=== PATIENT | female | born 1990 | race Caucasian/White ===

== ENCOUNTER 2016-11-18 09:28 | Emergency (ER) | payer OTHER, MEDICAID ==
[~2016-11-18] VITALS: Ht 152.4 cm; Wt 56.0 kg
[2016-11-18 09:36] VITALS: BP 99/68; PULSE 90; RESP 16; TEMP 97.6; O2SAT 98
[2016-11-18 10:40] LABS: GLUCOSE,URINE NEG (NEG); KETONE, URINE NEG (NEG)
[2016-11-18 10:41] LABS: BLOOD, URINE MOD (NEG); NITRITE,URINE POS (NEG)
[2016-11-18 10:48] LABS: METHOD OF COLLECTION VOIDED; URINE COLOR AMBER (YELLW/STRAW)
[2016-11-18 11:00] VITALS: O2SAT 98
[2016-11-18] MEDS ORDERED: SODIUM CHLORIDE 0.9% FLUSH 5 ML FLUSH IVF PRN (11:00)
[2016-11-18 11:13] LABS: BACTERIA, URINE MOD /hpf; COMMENT (UR) CULTURE INDICATED; CULTURE IF INDICATED CULTURE INDICATED; RBC, URINE 0-3 /hpf (0-3); SQUAMOUS EPITHELIAL CELL URINE 0-5 /hpf (0-5)
[2016-11-18 11:14] LABS: AUTOMATED NEUTROPHIL # 5.6 TH/MM3 (1.8-7.7); BASOPHIL # 0.1 TH/MM3 (0-0.2); BASOPHIL % 1.7 % (0.0-2.0); EOSINOPHIL # 0.1 TH/MM3 (0-0.4); EOSINOPHIL % 1.2 % (0.0-4.0); HEMATOCRIT 37.8 % (35.0-46.0); HEMO FLAGS DIFF FINAL; LYMPHOCYTE # 1.9 TH/MM3 (1.0-4.8); MEAN CORPUSCULAR HGB CONC 34.1 % (32.0-36.0); MONO % 7.8 % (0.0-8.0); NEUT % 66.3 % (16.0-70.0); PLATELET COUNT 229 TH/MM3 (150-450); RED BLOOD COUNT 4.45 MIL/MM3 (4.00-5.30); RED CELL DISTRIBUTION WIDTH 12.3 % (11.6-17.2); WHITE BLOOD COUNT 8.3 TH/MM3 (4.0-11.0)
[2016-11-18 11:18] LABS: CHLORIDE 103 MEQ/L (98-107); POTASSIUM 3.9 MEQ/L (3.5-5.1); SODIUM (NA) 139 MEQ/L (136-145)
[2016-11-18 11:26] LABS: ANION GAP 8 MEQ/L (5-15); BLOOD UREA NITROGEN 8 MG/DL (7-18)
[2016-11-18 11:29] LABS: ALT (GPT) 22 U/L (10-53); AST (GOT) 20 U/L (15-37); GLOMERULAR FILTRATION RATE 84 ML/MIN (>89)
[2016-11-18 11:30] LABS: TOTAL BILIRUBIN ADULT 0.8 MG/DL (0.2-1.0)
[2016-11-18 11:31] LABS: ALKALINE PHOSPHATASE 80 U/L (45-117)
[2016-11-18] MEDS ORDERED: CIPR500T2 PO (11:55)
--- NOTE | 2016-11-18 11:56 | PD ---
HPI Chief Complaint: Abdominal Pain Time Seen by Provider: 10:29 Travel History International Travel<30 days: No Contact w/Intl Traveler<30days: No Traveled to known affect area: No History of Present Illness HPI Patient 26-year-old otherwise healthy female presents emergency department today for evaluation of pressure feeling like she needs to urinate and some right flank pain. Patient states that her mother has a history of kidney stones and they're wondering if she has any kidney stones. Patient denies any fever abdominal pain nausea vomiting or diarrhea. On arrival patient states she 's feeling actually pretty well the symptoms have been intermittent. Does note some dysuria which is mild in nature. No vaginal bleeding or vaginal discharge. Has not had these symptoms before. PFSH Past Medical History Medical History: Denies Significant Hx Tetanus Vaccination: > 5 Years Influenza Vaccination: No ?: Not LMP: 11/04/16 Past Surgical History Surgical History: No Previous Surgery Social History Alcohol Use: No Tobacco Use: No Substance Use: No Allergies-Medications (Allergen,Severity, Reaction): Coded Allergies: No Known Allergies (Unverified , 11/18/16) Reported Meds & Prescriptions Reported Meds & Active Scripts Active Ciprofloxacin (Ciprofloxacin HCl) 500 Mg Tab 500 Mg PO BID 7 Days Review of Systems Except as stated in HPI: all other systems reviewed are Neg Physical Exam Narrative GENERAL: Well-developed well-nourished no apparent distress. Quite pleasant. SKIN: Warm and dry. HEAD: Atraumatic. Normocephalic. EYES: Pupils equal and round. No scleral icterus. No injection or drainage. ENT: No nasal bleeding or discharge. Mucous membranes pink and moist. NECK: Trachea midline. No JVD. CARDIOVASCULAR: Regular rate and rhythm. No murmur appreciated. RESPIRATORY: No accessory muscle use. Clear to auscultation. Breath sounds equal bilaterally. GASTROINTESTINAL: Abdomen soft, non-tender, nondistended. Hepatic and splenic margins not palpable. Trivial right-sided CVA tenderness. No left-sided CVA tenderness. MUSCULOSKELETAL: No obvious deformities. No clubbing. No cyanosis. No edema. NEUROLOGICAL: Awake and alert. No obvious cranial nerve deficits. Motor grossly within normal limits. Normal speech. PSYCHIATRIC: Appropriate mood and affect; insight and judgment normal. Data Data Last Documented VS Vital Signs Date Time Temp Pulse Resp B/P Pulse Ox O2 Delivery O2 Flow Rate FiO2 11/18/16 12:10 78 14 102/63 98 Room Air 11/18/16 09:36 97.6 Orders Urinalysis - C+S If Indicated (11/18/16 09:39) Ed Urine Pregnancytest Poc (11/18/16 09:39) Complete Blood Count With Diff (11/18/16 10:52) Comprehensive Metabolic Panel (11/18/16 10:52) Iv Access Insert/Monitor (11/18/16 10:52) Ecg Monitoring (11/18/16 10:52) Oximetry (11/18/16 10:52) Sodium Chloride 0.9% Flush (Ns Flush) (11/18/16 11:00) Ed Poc Ultrasound (11/18/16 10:52) Urine Culture (11/18/16 10:30) Labs Laboratory Tests Test 11/18/16 11/18/16 10:30 11:00 Urine Collection Type VOIDED Urine Color TYRA Urine Turbidity SLIGHT Urine pH 6.0 Urine Specific [place] 1.004 Urine Protein TRACE mg/dL Urine Glucose (UA) NEG mg/dL Urine Ketones NEG mg/dL Urine Occult Blood MOD Urine Nitrite POS Urine Bilirubin NEG Urine Leukocyte Esterase MOD Urine RBC 0-3 /hpf Urine WBC 3-5 /hpf Urine WBC Clumps MOD Urine Squamous Epithelial 0-5 /hpf Cells Urine Bacteria MOD /hpf Microscopic Urinalysis Comment CULTURE INDICATED White Blood Count 8.3 TH/MM3 Red Blood Count 4.45 MIL/MM3 Hemoglobin 12.9 GM/DL Hematocrit 37.8 % Mean Corpuscular Volume 85.0 FL Mean Corpuscular Hemoglobin 29.0 PG Mean Corpuscular Hemoglobin 34.1 % Concent Red Cell Distribution Width 12.3 % Platelet Count 229 TH/MM3 Mean Platelet Volume 7.8 FL Neutrophils (%) (Auto) 66.3 % Lymphocytes (%) (Auto) 23.0 % Monocytes (%) (Auto) 7.8 % Eosinophils (%) (Auto) 1.2 % Basophils (%) (Auto) 1.7 % Neutrophils # (Auto) 5.6 TH/MM3 Lymphocytes # (Auto) 1.9 TH/MM3 Monocytes # (Auto) 0.6 TH/MM3 Eosinophils # (Auto) 0.1 TH/MM3 Basophils # (Auto) 0.1 TH/MM3 CBC Comment DIFF FINAL Differential Comment Sodium Level 139 MEQ/L Potassium Level 3.9 MEQ/L Chloride Level 103 MEQ/L Carbon Dioxide Level 28.0 MEQ/L Anion Gap 8 MEQ/L Blood Urea Nitrogen 8 MG/DL Creatinine 0.83 MG/DL Estimat Glomerular Filtration 84 ML/MIN Rate Random Glucose 86 MG/DL Calcium Level 8.8 MG/DL Total Bilirubin 0.8 MG/DL Aspartate Amino Transf 20 U/L (AST/SGOT) Alanine Aminotransferase 22 U/L (ALT/SGPT) Alkaline Phosphatase 80 U/L Total Protein 8.1 GM/DL Albumin 3.7 GM/DL [facility] Medical Decision Making Medical Screen Exam Complete: Yes Emergency Medical Condition: Yes Differential Diagnosis Kidney stone, urinary tract infection, polynephritis. Narrative Course Patient is very well appearing female in NAD. declines pain medication when offered in ED. she has UTI. US in ed shows no hydronephrosis. Minimal CV tenderness on right. Consider pyelonephritis. Discussed cannot definatively exclude kidney stone but i doubt. Discussed r/b/c/a of CT examination and i recommend we wait for now citing risk of radiation and as well as she looks expectant management with cipro therapy is appropriate. She is agreeable. Discussed if no better in two days then consider return to ED criteria for repeat evaluation. Otherwise follow up with pcp. Diagnosis Primary Impression: Pyelonephritis Med/Other Pt SpecificInfo: Prescription(s) given Scripts Ciprofloxacin 500 Mg [id number] Mg PO BID 7 Days Ref 0 Prov:Erwin Millard MD 11/18/16 Disposition: 01 DISCHARGE HOME Condition: Stable Erwin Millard MD Nov 18, 2016 11:55
[2016-11-18 12:10] VITALS: BP 102/63; PULSE 78; RESP 14; O2SAT 98
== END 2016-11-18 12:15 | disposition home or self-care (01) ==
LOC: PHED 09:28
DX: N12 Tubulo-interstitial nephritis, not specified as acute or chronic (principal); B96.20 Unspecified Escherichia coli [E. coli] as the cause of diseases classified elsewhere
CPT/HCPCS: 80053; 81001; 84703; 85025; 87077; 87086; 87186; 99284